=== PATIENT | female | born 1970 | race Caucasian/White ===

== ENCOUNTER 2023-06-06 13:28 | Emergency (ER) | payer BC ==
[~2023-06-06 13:28] MED LIST: Dextrose 5 %-0.45 % NaCl 1000 ml Bag ONE
[2023-06-06] MEDS ORDERED: Sodium Chloride 0.9% 1,000 ML ONE ×3 (14:06→16:18)
[2023-06-06] MEDS ORDERED: Ondansetron PF 4 MG/2 ML Vial ONE (14:21)
[2023-06-06 14:26] LABS: #Basophils 0.1 thou/uL (0.0-0.2); #Eosinphils 0.1 thou/uL (0.0-0.7); #Lymphocytes 2.7 thou/uL (1.20-3.40); #Neutrophils 6.7 thou/uL (1.40-6.50); %Basophils 0.9 % (0.0-1.0); %Eosinophils 0.7 % (0.0-10.0); %Lymphocytes 25.5 % (21.0-51.0); %Monocytes 9.7 % (0.0-10.0); %Neutrophils 63.2 % (42.0-75.0); Bilirubin Moderate (Negative); Blood, Urine Moderate (Negative); Clarity Cloudy (Clear); Glucose, Urine (Dipstick) Negative (Negative); Hematocrit 51.5 % (36.0-47.0); Hemoglobin 16.7 g/dL (12.0-16.0); Ketone, Urine Trace mg/dL (Negative); Leukocyte Small (Negative); Mean Corpuscular HGB CONC 32.5 g/dL (32.0-36.0); Mean Corpuscular Hemoglobin 30.1 pg (27.0-31.0); Mean Corpuscular Volume 92.5 fl (78.0-98.0); Mean Platelet Volume 9.3 fL (7.4-10.4); Nitrite Negative (Negative); Platelet Count 217 10x3/uL (130-400); Protein, Urine (Dipstick) > or equal to 300 mg/dL (Neg-Trace); RBC Distribution Width 12.6 % (11.5-14.5); Red Blood Cell (RBC) Count 5.56 mill/uL (4.20-5.40); Urobilinogen 0.2 mg/dL (Less than 2); White Blood Cell (WBC) Count 10.7 10x3/uL (4.8-10.8)
[2023-06-06 14:29] LABS: Specific Gravity, Urine 1.029 (1.002-1.036)
[2023-06-06 14:37] LABS: Bacteria/HPF 4+ HPF (None Seen); CAUTI Indications for Culture Pelvic or flank pain; WBC/HPF Greater Than 50 HPF (0-3)
[2023-06-06 14:38] LABS: Mucous/LPF 1+ LPF (<2+); Yeast-Budding 2+ HPF (None Seen); Yeast-Hyphae 1+ HPF (None Seen)
[2023-06-06 14:40] LABS: ALT (SGPT) 31 U/L (8-55); AST (SGOT) 42 U/L (5-34); Albumin 4.4 g/dL (3.5-5.0); Alkaline Phosphatase 199 U/L (40-110); Anion Gap 19 mmol/L (10-20); BUN (Urea Nitrogen) 26 mg/dL (9.8-20.1); Bilirubin, Total 2.4 mg/dL (0.2-1.2); CK (CPK) 146 U/L (29-168); Calc. Creatinine Clearance 0 mL/min (70-130); Calcium 10.1 mg/dL (7.8-10.44); Carbon Dioxide 17 mmol/L (22-29); Chloride 93 mmol/L (98-107); Estimated GFR 30; Globulin 4.5 g/dL (2.4-3.5); Lipase 39 U/L (8-78); Magnesium 1.8 mg/dL (1.6-2.6); Potassium 4.4 mmol/L (3.5-5.1); Protein, Total 8.9 g/dL (6.0-8.3); Sodium 125 mmol/L (136-145)
[2023-06-06 14:41] LABS: Urine Culture Reflex Yes Yes
[2023-06-06 14:44] LABS: Critical Call Chemistry NUR.AW2; Glucose 445 mg/dL (70-105)
[2023-06-06] MEDS ORDERED: Insulin Regular 300 UNITS/3 ML VIAL ONE (14:48)
[2023-06-06 15:16] LABS: Base Excess-Venous -8.9 mmol/L (-2.0 to 3.0); CO2 Tension (PvCO2) 46.6 mmHg (42.0-51.0); Calcium, Ionized 1.18 mmol/L (1.15-1.33); Chloride 103 mmol/L (98-107); Hemoglobin - Calc 17.5 g/dL (12.0-16.0); Potassium 4.9 mmol/L (3.5-5.1); Sodium 129 mmol/L (138-145); T. Carbon Dioxide 20.4 mmol/L (22.0-28.0); vO2 Saturation-calc 84.2 % (60.0-85.0)
[2023-06-06 16:10] LABS: Bilirubin Negative (Negative); Blood, Urine Trace (Negative); Clarity Clear (Clear); Glucose, Urine (Dipstick) 500 mg/dL (Negative); Ketone, Urine Negative (Negative); Leukocyte Small (Negative); Nitrite Negative (Negative); Protein, Urine (Dipstick) Negative (Neg-Trace); Urobilinogen 0.2 mg/dL (Less than 2); pH, Urine 5.5 (5.0-9.0)
[2023-06-06 16:17] LABS: Bacteria/HPF Rare-Few HPF (None Seen); CAUTI Indications for Culture Pelvic or flank pain; Mucous/LPF Rare LPF (<2+); RBC/HPF 0-3 HPF (0-3); WBC/HPF 0-3 HPF (0-3); Yeast-Budding Rare HPF (None Seen); Yeast-Hyphae Rare HPF (None Seen)
[2023-06-06 16:18] LABS: Urine Culture Reflex No No
[2023-06-06 17:51] LABS: Anion Gap 15 mmol/L (10-20)
[2023-06-06 17:52] LABS: BUN (Urea Nitrogen) 23 mg/dL (9.8-20.1); Calc. Creatinine Clearance 0 mL/min (70-130); Calcium 8.5 mg/dL (7.8-10.44); Carbon Dioxide 16 mmol/L (22-29); Chloride 103 mmol/L (98-107); Estimated GFR 47; Glucose 340 mg/dL (70-105); Potassium 4.2 mmol/L (3.5-5.1); Sodium 130 mmol/L (136-145)
[2023-06-06] MEDS ORDERED: INSULIN REGULAR IN 0.9 % NACL 100 UNITS/100 ML BAG ONE (18:33)
[2023-06-06 19:08] LABS: Base Excess-Venous -7.8 mmol/L (-2.0 to 3.0); Bicarbonate (HCO3v) 19.5 mmol/L (22.0-28.0); CO2 Tension (PvCO2) 45.2 mmHg (42.0-51.0); Calcium, Ionized 1.18 mmol/L (1.15-1.33); Chloride 109 mmol/L (98-107); Hemoglobin - Calc 17.4 g/dL (12.0-16.0); Potassium 4.2 mmol/L (3.5-5.1); Sodium 135 mmol/L (138-145); T. Carbon Dioxide 20.9 mmol/L (22.0-28.0)
[2023-06-06] MEDS ORDERED: Potassium Chloride 20 MEQ TAB ONE (20:17)
== END 2023-06-06 20:56 | disposition short-term general hospital (02) ==
LOC: MADERS 13:28
DX: E11.10 Type 2 diabetes mellitus with ketoacidosis without coma (principal); E86.0 Dehydration; Z93.2 Ileostomy status; Z79.84 Long term (current) use of oral hypoglycemic drugs
CPT/HCPCS: 36416; 80053; 81001; 82010; 82330; 82550; 82803; 83690; 83735; 85025; 87077; 87086; 96361; 96365; 96366; 96375; J1815; J2405; J7042; J7050